=== PATIENT | male | born 1985 | race Two or more races ===

== ENCOUNTER 2018-03-06 18:10 | Emergency (ER) | payer MEDICAID ==
[~2018-03-06] VITALS: Ht 190.5 cm; Wt 159.0 kg
[~2018-03-06 18:10] MED LIST: GENT5DRO4 EACHEYE; IBUP-1986 PO
[2018-03-06] MEDS ORDERED: TETanus/Pertussis (Acell)/Diphther VAC/PF (Tdap-Adult) 0.5ml syringe IMVAC ONE (18:55)
[2018-03-06 19:30] VITALS: BP 150/68
== END 2018-03-06 23:10 | disposition home or self-care (01) ==
LOC: ER 18:10
DX: S91.332A Puncture wound without foreign body, left foot, initial encounter (principal); Z79.899 Other long term (current) drug therapy; W45.0XXA Nail entering through skin, initial encounter; Y93.89 Activity, other specified; Y92.89 Other specified places as the place of occurrence of the external cause; Y99.8 Other external cause status
CPT/HCPCS: 90471; 90715; 99283

== ENCOUNTER 2018-09-09 22:19 | Emergency (ER) | payer MEDICAID ==
[~2018-09-09] VITALS: Ht 190.5 cm; Wt 124.4 kg
[2018-09-09 22:41] VITALS: BP 165/92
[2018-09-09] MEDS ORDERED: LIDOcaine 1% w/epiNEPHrine 1:200,000 30ml vial IM ONE (23:50)
[2018-09-10] MEDS ORDERED: LIDOcaine 1% w/epiNEPHrine 1:200,000 30ml vial IM ONE (00:25)
== END 2018-09-10 00:52 | disposition home or self-care (01) ==
LOC: ER 22:20
DX: S51.811A Laceration without foreign body of right forearm, initial encounter (principal); Z79.899 Other long term (current) drug therapy; W26.0XXA Contact with knife, initial encounter; Y93.89 Activity, other specified; Y92.89 Other specified places as the place of occurrence of the external cause; Y99.8 Other external cause status
CPT/HCPCS: 12002; 99283; J3490

== ENCOUNTER 2018-09-19 10:33 | Emergency (ER) | payer MEDICAID ==
[~2018-09-19] VITALS: Ht 190.5 cm; Wt 147.0 kg
[2018-09-19 11:03] VITALS: BP 137/84
== END 2018-09-19 11:05 | disposition home or self-care (01) ==
LOC: ER 10:33
DX: S51.811D Laceration without foreign body of right forearm, subsequent encounter (principal); Z48.02 Encounter for removal of sutures; Z79.2 Long term (current) use of antibiotics; Z79.899 Other long term (current) drug therapy; W26.0XXD Contact with knife, subsequent encounter
CPT/HCPCS: 99281

== ENCOUNTER 2023-06-18 09:44 | Emergency (ER) | payer MEDICAID ==
[~2023-06-18] VITALS: Ht 185.4 cm; Wt 180.6 kg
[~2023-06-18 09:44] MED LIST changes: +GENT5DRO22 EACHEYE; -GENT5DRO4 EACHEYE
[2023-06-18 09:45] VITALS: BP 177/96; PULSE 87; TEMP 98; O2SAT 98
[2023-06-18 09:50] VITALS: RESP 18
[2023-06-18] MEDS ORDERED: PERM60CR19 TOP (10:08)
== END 2023-06-18 10:17 | disposition home or self-care (01) ==
LOC: ER 09:45
DX: B86 Scabies (principal); Z79.899 Other long term (current) drug therapy
CPT/HCPCS: 99282

== ENCOUNTER 2025-03-19 10:35 | Emergency (ER) | payer MEDICAID ==
[~2025-03-19] VITALS: Ht 188 cm; Wt 134.4 kg
[~2025-03-19 10:35] MED LIST changes: +CLOT30CR19 TOP; +CLOT45CR32 TOP; +GEN0.3OS EACHEYE; -GENT5DRO22 EACHEYE
[2025-03-19 10:38] VITALS: BP 134/102; PULSE 84; RESP 18; O2SAT 99
--- NOTE | 2025-03-19 14:19 | Physician Documentation ---
History of Present Illness ~ Chief Complaint: Leg Pain Stated Complaint: UPPER THIGH PAIN Time Seen by MD: 10:47 Primary Medical Doctor: ILSA SOTELO Patient is seen today with complaints of pain and subjective weakness associated with the pain of his quadriceps muscles bilaterally. Patient states he thinks he overdid it at work on Wednesday and states his quadriceps felt painful and weak all weekend. Patient denies any previous history with symptoms such as this. Patient denies any low back pain or saddle anesthesia or changes in bowel or bladder habits or chest pain or shortness of breath or abdominal pain or nausea, vomiting, diarrhea. Patient has no other concern or complaint at this time. Tetanus witin 5 years: Yes Medication Reconciliation Allergies: Coded Allergies: No Known Allergies (Unverified , 03/19/25) Scheduled Clotrimazole (Clotrimazole), 1 APPLIC TOP Q12H Clotrimazole (Clotrimazole), 1 APPLIC TOP Q12H Gentamicin Sulfate (Gentak), 2 DROP EACHEYE QID Ibuprofen (Ibuprofen), 1 TAB PO Q8H Past Medical History Past Medical History: No Pertinent History Past Surgical History: no surgical history Alcohol Use: None Drug Use: none Lives In: Home Review of Systems Constitutional: Denies: chills, fever, weakness Eyes: Denies: pain, blurred vision ENT: Denies: ear pain, nose pain, throat pain, mouth pain Respiratory: Denies: cough, shortness of breath Cardiovascular: Denies: chest pain, palpitations Gastrointestinal: Denies: abdominal pain, nausea, vomiting Genitourinary: Denies: burning, dysuria Male Genitalia: Denies: penile discharge, testicular pain Neurological: Denies: headache, dizziness Musculoskeletal: Denies: pain, swelling Integumentary: Denies: rash, lesions Allergic/Immunologic: Denies: hives, itching Hematologic/Lymphatic: Denies: no symptoms reported Psychiatric: Denies: depression, anxiety Physical Exam Vital Signs: Temperature: 98.4, Source: Temporal, Heart Rate: 84, Respiratory Rate: 18, BP: 134/102, Pulse Oximetry: 99, Weight: 134.400 Oxygen Flow Rate: 0 Physical Exam General: Awake and Alert, no acute distress. HEENT: Conjunctiva pink, Sclera clear, Mucus Membranes moist. Neck: Supple without masses and tenderness. Resp: Unlabored. Lungs clear to auscultation bilaterally. Heart: Regular Rate and rhythm, normal S1 and S2 without murmur, rub or gallop. Musculoskeletal: Patient has mild tenderness to palpation of his quadricep muscles bilaterally. Patient does have unsteady gait with progressing weakness and pain of his quadriceps bilaterally. Patient is neurovascularly intact distally. Strength patient has 5/5 strength with knee extension and knee flexion bilaterally. Extremities: No cyanosis,clubbing or edema. Skin: Warm and Dry. Progress Results/Orders Results/Orders Vital Signs 03/19/25 10:38 Temp 98.4 Pulse 84 Resp 18 B/P (MAP) 134/102 Pulse Ox 99 O2 Flow Rate 0 Medical Decision Making Findings Patient is seen today with complaints of pain and subjective weakness associated with the pain of his quadriceps muscles bilaterally. Patient states he thinks he overdid it at work on Wednesday and states his quadriceps felt painful and weak all weekend. Patient denies any previous history with symptoms such as this. Patient denies any low back pain or saddle anesthesia or changes in bowel or bladder habits or chest pain or shortness of breath or abdominal pain or nausea, vomiting, diarrhea. Patient has no other concern or complaint at this time. Patient will be given note to be off work for five days. Patient will follow up with primary care in 2-5 days if no better as needed sooner. Return to ED with any worsening, concerning or changing symptoms. Patient will continue Tylenol and ibuprofen as needed for symptomatic pain relief. Departure Disposition: HOME / SELF CARE / HOMELESS Impression: Primary Impression: Muscle strain Condition: Stable Discharge Instructions: RICE Therapy for Routine Care of Injuries, [id number] Additional Instructions: Patient will be given note to be off work for five days. Patient will follow up with primary care in 2-5 days if no better as needed sooner. Return to ED with any worsening, concerning or changing symptoms. Patient will continue Tylenol and ibuprofen as needed for symptomatic pain relief. Departure Forms: Excuse form Work or School Excused From: Work Excuse beginning now through the following date: Mar 23, 2025 Referrals: NO PRIMARY CARE PROVIDER (PCP) Signature Scribe Signature: No scribe Attestation: No scribe CHIDI PEREZ Mar 19, 2025 14:19
[2025-03-19 14:48] VITALS: TEMP 98.4
== END 2025-03-19 14:49 | disposition home or self-care (01) ==
LOC: ER 10:35
DX: S76.112A Strain of left quadriceps muscle, fascia and tendon, initial encounter (principal); S76.111A Strain of right quadriceps muscle, fascia and tendon, initial encounter; X58.XXXA Exposure to other specified factors, initial encounter; Y93.89 Activity, other specified; Y92.89 Other specified places as the place of occurrence of the external cause; Y99.8 Other external cause status
CPT/HCPCS: 99284